=== PATIENT | male | born 1985 | race Caucasian/White ===

== ENCOUNTER 2016-11-26 11:34 | Emergency (ER) | payer OTHER ==
[~2016-11-26] VITALS: Ht 170.2 cm; Wt 86.9 kg
[2016-11-26 11:44] VITALS: TEMP 36.7; Ht 170.2 cm; Wt 86.9 kg
--- NOTE | 2016-11-26 12:08 | EMERGENCY ROOM VISIT NOTE ---
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 The bleeding has stopped with direct pressure applied by patient. Denies weakness or numbness of the finger. The patient has full range of motion of the fingers. The patient rates the pain as steady and dull and 5/10. The patient denies any other injuries. The patient's tetanus shot is up to date. He has not taken any medications for the pain. REVIEW OF SYSTEMS: A 6 system review of systems was completed with positives and pertinent negatives listed in the HPI. ALLERGIES: None MEDICATIONS: None PMH: none SOCIAL HISTORY: Patient lives locally. He currently smokes cigarettes, one pack per day. Patient does admit to marijuana use "pretty regularly" and states he smoked marijuana last evening. Patient reports occasional alcohol use. PHYSICAL EXAM: Vital Signs: Reviewed Nurse's notes, vital signs stable. GENERAL : 31-year-old male presents with his girlfriend, in no acute distress, well developed, well nourished. SKIN: There is a 1 cm long laceration on the tip of the left thumb through the nail. The edges gape apart with traction. There is no foreign material in the wound and it looks clean. There is no current bleeding, however dried blood noted over the digit. No deep structures such as tendons, bones, or significant blood vessels are seen in the base of the wound. Extension and flexion of the finger is full and strong. Full range of motion of the wrist and other fingers. Capillary refill less than 2 seconds. Normal sensation to light and sharp touch. EMERGENCY DEPARTMENT COURSE: I examined the patient. Verbal consent was obtained to perform the procedure. Using sterile technique the wound was cleansed with Betadine. 5 ml of 1% buffered lidocaine and Bupivocaine 0.5% was used to perform a digital block to anesthetize the patient by JESS Vogel. The area was sterilely draped. Once the patient was anesthetized, the wound was copiously irrigated under pressure with sterile saline. The wound was explored and there were no deep structures injured. The laceration was repaired using 5 simple interrupted 5-0 nylon sutures. Pt. reported pain with sutures, so wound was re-anesthetized locally utilizing another 1ml of 1% buffered lidocaine and Bupivocaine 0.5%. The patient tolerated the procedure well. Hemostasis was achieved. The area was cleaned with sterile saline and dressed with bacitracin ointment and bandage. The patient was discharged home in good condition. Discussion with patient regarding low BP initially in ED. Pt. is to drink plenty of fluids and continue to monitor BP. He should follow-up with PCP regarding BP check. DIAGNOSIS: Finger laceration DIFFERENTIAL DIAGNOSIS: Contusion, abrasion, subungual hematoma. DISCHARGE INSTRUCTIONS & TREATMENT: Keep wound clean and dry. Do not allow any crusting or dried blood to accumulate on sutures. If this occurs, use a 1:1 solution of hydrogen peroxide/water on a Q-tip to clean the wound. Use an antibiotic ointment for 3-4 days, then let wound dry. Suture removal in 10-12 days. Return sooner for any signs of infection (increasing redness, swelling, drainage). Ice and elevate for swelling and pain. Ibuprofen 600 mg and Tylenol 1000 mg every 6 hrs for pain. Keep covered when in sun until sutures removed then SPF 50 or higher for one year. Vitamin E oil if desired two weeks after suture removal for reduction of scar. Current/Historical Medications No Active Prescriptions or Reported Meds Allergies Coded Allergies: No Known Allergies (Verified , 11/26/16) Vital Signs Date Time Temp Pulse Resp B/P (MAP) Pulse Ox O2 Delivery O2 Flow Rate FiO2 11/26/16 14:19 74 18 158/95 100 Room Air 11/26/16 11:51 133/76 11/26/16 11:44 36.7 90 20 83/61 96 Room Air Departure Information Impression Primary Impression: Laceration of left thumb with damage to nail Dispostion Home / Self-Care Condition GOOD Prescriptions No Active Prescriptions or Reported Meds Referrals No Doctor, Assigned (PCP) Patient Instructions My [facility] Additional Instructions You have received 5 sutures on your left thumb. These sutures are NOT dissolvable and WILL need to be removed by a health care provider in 10-12 days. You can return to the Emergency Department or contact your Primary Care Provider to have the sutures removed. Proper wound care is essential for adequate wound healing and infection prevention. You can shower and clean the wound with soap and water. Do not scour over the wound, pat dry with a towel. Do not submerse the wound (i.e. bathe or dish wash) until the sutures have been removed. You can use an antibiotic ointment with a dressing over the wound for the next 3-4 days. After this time you may leave the wound dry and open to the air. If crust develops over the wound you can use a Q-tip to apply a 1:1 peroxide:water solution to clean the wound. Look for signs of infection of the wound including: increased pain, swelling, foul discharge, streaking, or increased temperature. If any of these are noticed you should return to the Emergency Department for further assessment and treatment. As with any laceration you may have received nerve damage to the surrounding tissues. This damage may or may not be permanent. You should keep the area covered with sunscreen for the first 6 months to 1 year when at risk for exposure to help minimize scarring. You can also use scar reducing creams or Vitamin E oil to help minimize scarring. For pain control, you can use the following jeho-iyg-sowocdt medicines (if >12 yo): - Regular strength (325mg/tab) Tylenol (acetaminophen) 2 tabs every 4-6 hours as needed. Do not exceed 12 tablets in a 24 hour period. Avoid taking more than 4 grams (4000 mg) of Tylenol per day. This includes any other sources of acetaminophen you may take on a regular basis. - Regular strength (200 mg/tab) Advil (ibuprofen) 1-2 tabs every 4-6 hours as needed. Do not exceed a dose of 3200 mg per day. Return to the emergency department if your symptoms worsen despite treatment course outlined above. Problem Qualifiers Primary Impression: Laceration of left thumb with damage to nail Encounter type: initial encounter Foreign body presence: without foreign body Qualified Codes: S61.112A - Laceration without foreign body of left thumb with damage to nail, initial encounter
[2016-11-26] MEDS ORDERED: XYLOCAINE 1%/SOD BICARB 20 ML VIAL INFIL ONE (12:45)
[2016-11-26] MEDS ORDERED: BUPIVACAINE 0.5 % 5 MG/1 ML MPF 30ML VIAL INFIL ONE (12:45)
[2016-11-26 14:19] VITALS: BP 158/95; PULSE 74; O2SAT 100
== END 2016-11-26 14:20 | disposition home or self-care (01) ==
LOC: C.EDB 11:36 → C.EDD 14:20
DX: S61.112A Laceration without foreign body of left thumb with damage to nail, initial encounter (principal); W45.8XXA Other foreign body or object entering through skin, initial encounter; Y92.89 Other specified places as the place of occurrence of the external cause; Y99.0 Civilian activity done for income or pay

== ENCOUNTER → 2017-03-03 | Outpatient (CLI) | payer OTHER | END | disposition home or self-care (01) | LOC: C.LAB 02:13 | DX: Z04.8 Encounter for examination and observation for other specified reasons (principal) ==

== ENCOUNTER 2017-06-05 11:35 | Emergency (ER) | payer OTHER ==
[~2017-06-05] VITALS: Ht 170.2 cm; Wt 83.0 kg
[2017-06-05 11:39] VITALS: TEMP 36.7; Ht 170.2 cm; Wt 83.0 kg
[2017-06-05] MEDS ORDERED: KETOROLAC TROMETHAMINE 60 MG/2 ML VIAL IM STA (12:00)
[2017-06-05] MEDS ORDERED: HYDR-5688 PO (12:03)
[2017-06-05] MEDS ORDERED: AMX500 PO (12:03)
--- NOTE | 2017-06-05 12:04 | EMERGENCY ROOM VISIT NOTE ---
History First contact with patient: 11:42 Chief Complaint: DENTAL PAIN Stated Complaint: SEVERE TOOTH PAIN Nursing Triage Summary: right upper dental pain last few days did not call dentist History of Present Illness The patient is a 32 year old male who presents to the Emergency Room via private vehicle with complaints of "right upper dental pain 3 days. Patient states she has a history of dental elements of which she has had to receive antibiotics and pain medicine in the past. He last had Tylenol today at 10 AM. He rates the pain as a 6/10. There are no fevers. He denies any pain under the tongue. Review of Systems A complete 6-point Review of Systems was discussed with the patient, with pertinent positives and negatives listed in the History of Present Illness. All remaining Review of Systems questions can be considered negative unless otherwise specified. Past Medical/Surgical History Previous dental ailments Family History No pertinent Social History Smoking Status: Current Every Day Smoker Pt. lives locally Current/Historical Medications Scheduled Amoxicillin (Amoxicillin), 500 MG PO TID Scheduled PRN Hydrocodone/Acetaminophen 5MG/325MG (Foxworth 5MG/325MG), 1-2 TABLET PO Q6 PRN for Pain Physical Exam Vital Signs Date Time Temp Pulse Resp B/P (MAP) Pulse Ox O2 Delivery O2 Flow Rate FiO2 06/05/17 11:39 36.7 116 20 127/75 98 Room Air Physical Exam VITAL SIGNS - Vital signs and nursing notes were reviewed. Stable. Tachycardic. GENERAL -32-year-old male appearing his stated age who is in no acute distress. Communicates well with provider and answers questions appropriately. HEAD - Normocephalic, Atraumatic. No Roth's Sign or Raccoon's Eyes. No depressed skull fractures palpable. EYES - PERRL with EOMI bilaterally. EARS - No deformities of external structures noted on gross examination bilaterally. No pain elicited with palpation of the tragus bilaterally. External auditory canals without discharge or otorrhea. Tympanic membranes pearly joyce without retraction or bulging. No fluid or purulent material visualized behind the TM. NOSE - Midline and without cyanosis. No epistaxis or purulent drainage noted. Septum midline without deviation or septal hematoma noted. MOUTH/OROPHARYNX - Without perioral cyanosis. Buccal mucosa pink and moist and without leukoplakia. Tongue midline with equal elevation of palate bilaterally. No tonsillar hypertrophy, erythema, or exudates noted. Fair dentition noted. The superior posterior tooth is in poor repair. Surrounding gums erythematous and edematous without discharge. Exquisite tenderness to palpation of affected tooth. No trismus. No fluctuance to palpation or active drainage appreciated. NECK - Neck with FROM. Supple to palpation. No lymphadenopathy noted. No nuchal rigidity. Medical Decision & Procedures Medical Decision Patient was seen and evaluated as above. He presents to us today with dental pain. He is well on exam. No evidence of meningitis, encephalitis or Hari angina. Rabies visit was reviewed. He did well with amoxicillin, and a short course of Foxworth. Peds of any drug monitoring system reveals no red flags. He' ll be discharged to follow with his dentist in the area. He was educated upon management, educated upon worrisome symptoms in which to return, had questions and provided discharge, and was discharged home in good condition. In the evaluation and treatment of this patient, the following differential diagnoses were considered: Periapical Abscess, Osteonecrosis of the Jaw, Dental Fracture, Dental Caries, Hari's Angina, Vincent's Angina, Facial Cellulitis. Impression Primary Impression: Dentalgia Departure Information Dispostion Home / Self-Care Condition GOOD Prescriptions Hydrocodone/Acetaminophen 5MG/325MG (Foxworth 5MG/325MG) Tab 1-2 TABLET PO Q6 Y for Pain, #15 TAB For Initial Treatment Prov: Nabil Vogel PA-C 06/05/17 Amoxicillin (Amoxicillin) 500 Mg Cap 500 MG PO TID for 10 Days, #30 TABS Prov: Nabil Vogel PA-C 06/05/17 Referrals No Doctor, Assigned (PCP) Patient Instructions My [facility] Additional Instructions You have been treated in the Emergency Department for Dental Pain. You have been prescribed NORCO to be used for pain control. This is a narcotic medication. You cannot drive or consume alcohol while on this medicine. This medicine should only be used for pain that cannot be controlled with over-the- counter pain medicines. You were prescribed Amoxicillin to be taken every 8 hours. This is an antibiotic. All antibiotics have the potential to cause diarrhea. Stop this medication and contact a medical provider if you were to develop any significant adverse side effects including: wheezing, shortness of breath, passing out, vomiting, or a diffuse rash. Always take antibiotics as directed and COMPLETE the ENTIRE course regardless of the improvement of your symptoms. For pain control, you can use the following nijn-odb-gtcrbwo medicines (if >12 yo): - Regular strength (325mg/tab) Tylenol (acetaminophen) 2 tabs every 4-6 hours as needed. Do not exceed 12 tablets in a 24 hour period. Avoid taking more than 3 grams (3000 mg) of Tylenol per day. This includes any other sources of acetaminophen you may take on a regular basis. - Regular strength (200 mg/tab) Advil (ibuprofen) 1-2 tabs every 4-6 hours as needed. Do not exceed a dose of 3200 mg per day. Refrain from smoking cigarettes or using chewing tobacco until you have been evaluated by your dentist. Keeping beverages lukewarm and consuming soft foods can decrease your pain. Warm compresses over the affected area may offer some relief. You MUST seek evaluation of your dental pain by a dentist following your visit to the Emergency Department. The Emergency Department is not capable of treating dental issues long-term. You should call your dentist as soon as possible to make an appointment for evaluation of your dental pain. Return to the emergency department if you develop the following symptoms despite treatment course outlined above: fever, intractable pain, increased redness, swelling, or purulent discharge.
[2017-06-05 12:16] VITALS: BP 119/70; PULSE 98; O2SAT 97
== END 2017-06-05 12:10 | disposition home or self-care (01) ==
LOC: C.EDB 11:37 → C.EDD 12:10
DX: K08.89 Other specified disorders of teeth and supporting structures (principal); F17.200 Nicotine dependence, unspecified, uncomplicated

== ENCOUNTER 2017-06-08 13:47 | Emergency (ER) | payer OTHER ==
[~2017-06-08] VITALS: Ht 170.2 cm; Wt 83.0 kg
[~2017-06-08 13:47] MED LIST changes: -AMOX500T3 PO
[2017-06-08 13:49] VITALS: TEMP 36.9; Ht 170.2 cm; Wt 83.0 kg
--- NOTE | 2017-06-08 14:17 | EMERGENCY ROOM VISIT NOTE ---
History First contact with patient: 14:03 Chief Complaint: DENTAL PAIN Stated Complaint: TOOTHACHE Nursing Triage Summary: Pt c/o toothache, top right for over a week. Appt for Saturday, seen here 2 days ago. Still has pain. No advil or tylenol today. History of Present Illness The patient is a 32 year old male who presents to the Emergency Room with complaints of dental pain. The patient reports he has had dental pain for over a week. The pain is located in the right upper molars. He states he was seen here 2 days ago and given prescription for Peel and amoxicillin. He has been taking these as prescribed as well as using topical numbing medicines but states that his pain has been worsening. He rates his discomfort a 10/10. 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 He reports that he missed his methadone dose yesterday because he was busy moving out of his apartment. He states that last night, he got a DUI because methadone was in his system and he only got 2 hours of sleep, causing him to miss his dose today. He is requesting something for pain. He denies taking any Tylenol or Advil today. He does have a dentist appointment set up 4 days from now. He denies any facial swelling, drainage, neck pain/stiffness or fevers. Review of Systems A complete 6 point review of systems was reviewed with the patient with pertinent positives and negatives as per history of present illness. All else were negative. Social History Smoking Status: Current Every Day Smoker Current/Historical Medications Scheduled Amoxicillin (Amoxicillin), 500 MG PO TID Amoxicillin (Amoxil), 500 MG PO TID Scheduled PRN Hydrocodone/Acetaminophen 5MG/325MG (Peel 5MG/325MG), 1-2 TABLET PO Q6 PRN for Pain Physical Exam Vital Signs Date Time Temp Pulse Resp B/P (MAP) Pulse Ox O2 Delivery O2 Flow Rate FiO2 06/08/17 14:35 82 18 126/72 99 06/08/17 13:49 36.9 78 16 131/85 98 Room Air Physical Exam VITALS: Vitals are noted on the nurse's note and reviewed by myself. Vital signs stable. GENERAL: This is a 32-year-old male, slightly anxious appearing, paces around the room throughout conversation. SKIN: The skin was without rashes. HEAD: Normocephalic atraumatic. EARS: External auditory canals clear, tympanic membranes pearly joyce without erythema or effusion bilaterally. EYES: Pupils equal round and reactive to light and accommodation. MOUTH: The right upper back molar is carious. There is minimal erythema of the surrounding gum is without significant swelling or evidence of abscess. Airway patent. No facial swelling. NECK: Supple without nuchal rigidity. No lymphadenopathy. NEURO: Patient was alert and oriented to person place and time. Medical Decision & Procedures Medical Decision Differential diagnosis includes dental caries, dental abscess, Hari angina, meningitis/encephalitis, among others. The patient was evaluated as above. He admits that he is a recovering drug addict and currently receives methadone daily. The patient was given a small amount of Peel on his visit a few days ago. I do not feel that further narcotic prescription will benefit the patient at this time. I encouraged him to keep his dentist appointment and continue the amoxicillin. I discussed alternating Tylenol and ibuprofen for pain control. He may also continue use of topical anesthetics. The patient did request a note for work and was given this. He also stated that his dog got hold of his amoxicillin and he is not sure how much is left. He was given a prescription for an additional one week of the medication and told to finish a complete 10 days. There is no evidence of Hari angina or facial cellulitis on exam. The patient verbalized his understanding of my assessment and treatment plan and was discharged home in good condition. [place] Drug Monitoring Program Search Results: patient reviewed within database (no issues- however patient is a methadone patient) Medication Reconcilliation Current Medication List: was personally reviewed by me Blood Pressure Screening Patient's blood pressure: Normal blood pressure Impression Primary Impression: Dentalgia Departure Information Dispostion Home / Self-Care Condition GOOD Prescriptions Amoxicillin (AMOXIL) 500 Mg Tab 500 MG PO TID for 7 Days, #21 TAB Prov: Genesis Andre ., JESS 06/08/17 Referrals No Doctor, Assigned (PCP) Patient Instructions My [facility] Additional Instructions You have been treated in the Emergency Department for Dental Pain. Continue the amoxicillin as prescribed. For pain control, you can use the following eoyt-kyl-dinncpv medicines (if >12 yo): - Regular strength (325mg/tab) Tylenol (acetaminophen) 1-2 tabs every 4-6 hours as needed. Do not exceed 12 tablets in a 24 hour period. Avoid taking more than 4 grams (4000 mg) of Tylenol per day. This includes any other sources of acetaminophen you may take on a regular basis. - Regular strength (200 mg/tab) Advil (ibuprofen) 3-4 tabs every 4-6 hours as needed. Do not exceed a dose of 3200 mg per day. You may alternate these medications for better pain control. Follow-up with your dentist as scheduled. Refrain from smoking cigarettes or using chewing tobacco until you have been evaluated by your dentist. Keeping beverages lukewarm and consuming soft foods can decrease your pain. Warm compresses over the affected area may offer some relief. You MUST seek evaluation of your dental pain by a dentist following your visit to the Emergency Department. The Emergency Department is not capable of treating dental issues long-term. You should call your dentist as soon as possible to make an appointment for evaluation of your dental pain. Return to the emergency department if you develop the following symptoms despite treatment course outlined above: fever, intractable pain, increased redness, swelling, or purulent discharge.
[2017-06-08] MEDS ORDERED: AMOX500T3 PO (14:32)
[2017-06-08 14:35] VITALS: BP 126/72; PULSE 82; O2SAT 99
== END 2017-06-08 14:37 | disposition home or self-care (01) ==
LOC: C.EDB 13:48 → C.EDD 14:37
DX: K08.89 Other specified disorders of teeth and supporting structures (principal); F17.200 Nicotine dependence, unspecified, uncomplicated

== ENCOUNTER → 2017-06-08 | Outpatient (CLI) | payer OTHER ==
[~2017-06-08] MED LIST: AMOX500T3 PO; AMX500 PO; HYDR-5688 PO
== END | disposition home or self-care (01) ==
LOC: C.LAB 00:05
DX: Z02.83 Encounter for blood-alcohol and blood-drug test (principal)

== ENCOUNTER → 2017-08-03 | Outpatient (CLI) | payer OTHER ==
[~2017-08-03] MED LIST changes: +AMOX500T3 PO; -AMX500 PO
== END | disposition home or self-care (01) ==
LOC: C.LAB 08:42
DX: Z02.83 Encounter for blood-alcohol and blood-drug test (principal)